=== PATIENT | female | born 1985 | race Caucasian/White ===

== ENCOUNTER 2017-07-02 14:28 | Day surgery (SDC) | payer MEDICAID ==
[~2017-07-02] VITALS: Ht 162.6 cm; Wt 99.8 kg
[~2017-07-02 14:28] MED LIST: AMLODIPINE10 M2 PO; BUPROPION HCL150 M1 PO; CELEXA20 MG PO; LEADER OMEPRAZO20 MG; LUTERA 0.02 MG-1 TAB PO; NEUTRA PHOS K PO; PAROXETINE40 MG PO; PAXIL20 MG PO; TESSALON PERLE200 MG PO; ZYRTEC-D 12HR 51 TER PO
[2017-07-02 14:32] VITALS: BP 124/91; BP 176/102
[2017-07-02 15:00] VITALS: BP 176/102
[2017-07-02 15:01] VITALS: BP 170/98
--- NOTE | 2017-07-02 15:06 | Procedure Note ---
Procedure detail Date of procedure: 07/02/17 Anesthesiologist: Bayron Ochoa Complications: None Pre-procedure diagnosis: Bilateral sacroiliitis Post-procedure diagnosis: Same Indications for procedure: Very pleasant 32-year-old white female the comes our procedural clinic today for bilateral SI joint injections. She has extreme point tenderness over the bilateral SI joints. She describes the pain as constant, dull, aching. She reports pain intensifies with sitting for any length of time. Procedure detail: Procedure: Bilateral sacroiliac joint injections under fluoroscopy Informed consent was obtained and the risks and benefits of the procedure were explained to the patient.~ The patient was taken to the procedure room and noninvasive monitors were placed including a noninvasive blood pressure cuff and pulse oximeter.~ The patient was placed prone on the procedure table. Both hips were cleansed using Betadine as a cleansing solution. C-arm fluoroscopy was used to view the right sacroiliac joint.~ The skin and subcutaneous tissues were anesthetized using lidocaine 1.5% and a 25-gauge needle.~ After this, a 22-gauge spinal needle was inserted under fluoroscopic guidance into the inferior aspect of the right sacroiliac joint.~ Omnipaque dye was injected and good spread was seen throughout the joint.~ After this, approximately 5 mL of bupivacaine, 0.25% and Depo-Medrol, 40 mg was incrementally injected into the right sacroiliac joint. We then moved to the left sacroiliac joint.~ The skin and subcutaneous tissues were anesthetized using lidocaine 1.5% and a 25-gauge needle.~ After this, a 22- gauge spinal needle was inserted under fluoroscopic guidance into the inferior aspect of the left sacroiliac joint.~ Omnipaque dye was injected and good spread was seen throughout the joint. After this, approximately 5 mL of bupivacaine, 0.25% and Depo-Medrol, 40 mg was incrementally injected into the left sacroiliac joint.~ The patient tolerated the procedure well with no complications. The patient was observed in the Pain Clinic and then was discharged home neurologically intact. Plan and disposition: Patient was evaluated 10 minutes post procedure. She reports 90 percent improvement terms of her bilateral hip pain. at 1505
[2017-07-02 15:27] VITALS: BP 119/84
== END 2017-07-02 15:28 | disposition home or self-care (01) ==
LOC: PM 14:28
PROC: 3E0U33Z Introduction of Anti-inflammatory into Joints, Percutaneous Approach (ICD-10-PCS; principal; 2017-07-02)
PROC: 3E0U3BZ Introduction of Anesthetic Agent into Joints, Percutaneous Approach (ICD-10-PCS; 2017-07-02)
DX: M46.1 Sacroiliitis, not elsewhere classified (principal)
CPT/HCPCS: G0260; J1030; Q9966